=== PATIENT | female | born 1995 | race American Indian/Alaskan Native ===

== ENCOUNTER 2019-03-01 10:42 | Emergency (ER) | payer BC ==
[2019-03-01 10:48] VITALS: BP 110/62
[2019-03-01] MEDS ORDERED: NORCO 10/325 PO ONE (13:28)
--- NOTE | 2019-03-01 13:34 | Emergency Department Report ---
Abscess Boil HPI - HPI Chief Complaint: Skin/Abscess/Foreign Body Stated Complaint: ABSCESS PAINFUL TO SIT DOWN Time Seen by Provider: 03/01/19 12:28 Duration: 2 Days History: Yes Pain, No Fever, No Purulent Drainage, No Numbness, No Foreign Body, No Previous History, No Insect Bite HPI: This is a 23-year-old female nontoxic, well nourished in appearance, no acute signs of distress presents to the ED with c/o of abscess left buttock area 2 days. Patient denies any pus or drainage. Patient denies any fever, chills, nausea, vomiting, chest pain, shortness the breath, headache, stiff neck, numbness or tingling. Patient denies any allergies to significant past medical history. Home Medications: Previous Rx's Medication Instructions Recorded Last Taken Type Acetaminophen/Codeine [Tylenol 1 tab PO Q6H PRN #12 tab 03/01/19 Unknown Rx /Codeine # 3 tab] Ciprofloxacin HCl [Ciprofloxacin 500 mg PO Q12HR #14 tab 03/01/19 Unknown Rx TAB] metroNIDAZOLE [Flagyl] 500 mg PO Q12HR #14 tab 03/01/19 Unknown Rx Allergies/Adverse Reactions: Allergies Allergy/AdvReac Type Severity Reaction Status Date / Time No Known Allergies Allergy Unverified 03/01/19 10:44 ED Review of Systems ROS: Stated complaint: ABSCESS PAINFUL TO SIT DOWN Other details as noted in HPI Constitutional: denies: chills, fever Eyes: denies: eye pain, eye discharge, vision change ENT: denies: ear pain, throat pain Respiratory: denies: cough, shortness of breath, wheezing Cardiovascular: denies: chest pain, palpitations Endocrine: no symptoms reported Gastrointestinal: denies: abdominal pain, nausea, diarrhea Genitourinary: denies: urgency, dysuria, discharge Musculoskeletal: denies: back pain, joint swelling, arthralgia Skin: denies: rash, lesions Neurological: denies: headache, weakness, paresthesias Psychiatric: denies: anxiety, depression Hematological/Lymphatic: denies: easy bleeding, easy bruising ED Past Medical Hx - Past Medical History Previous Medical History?: No - Surgical History Past Surgical History?: No - Social History Smoking Status: Never Smoker Substance Use Type: None - Medications Home Medications: Home Medications Medication Instructions Recorded Confirmed Last Taken Type Acetaminophen/Codeine [Tylenol 1 tab PO Q6H PRN #12 tab 03/01/19 Unknown Rx /Codeine # 3 tab] Ciprofloxacin HCl [Ciprofloxacin 500 mg PO Q12HR #14 tab 03/01/19 Unknown Rx TAB] metroNIDAZOLE [Flagyl] 500 mg PO Q12HR #14 tab 03/01/19 Unknown Rx ED Abscess Boil Physical Exam - Exam General: Vital signs noted. No distress. Alert and acting appropriately. Front/Back of Body, Lg (Color): 1 - 2 cm abscess with induration or fluctuance. Size: 2 cm Exam: Yes Tenderness, Yes Fluctuance, Yes Normal Neurologic Exam, Yes Normal Circulation, No Surrounding Cellulites/Erythema, No Lymphangitis, No Crepitation, No Heart Murmur I & D Note - I & D Note I & D Note: Under sterile field, I used Betadine to cleanse the area. I then used 2% lidocaine plain with 25-gauge 5/8 needle to inject area for anesthetic purposes. Total volume injected 3 mL. I then used an 11 blade to make a 1 cm incision. About 2 mL's of purulent drainage has been noted. I then used a hemostat to break the abscess formation. I then used sterile 0.9% normal saline flush to flush the wound with total volume of 40 mL used. I then put a 1/4 io doform packing to the incision. A sterile 4 x 4 with tape has been applied as dressing. Bleeding is under control. Patient tolerated the procedure well with no signs of distress noted. ED Course Vital Signs 03/01/19 10:47 Temperature 98.5 F Pulse Rate 104 H Respiratory 18 Rate Blood Pressure 110/62 O2 Sat by Pulse 99 Oximetry - Reevaluation(s) Reevaluation #1: 03/01/19 13:34 Patient is speaking in full sentences with no signs of distress noted. Critical care attestation.: If time is entered above; I have spent that time in minutes in the direct care of this critically ill patient, excluding procedure time. ED Medical Decision Making - Medical Decision Making This is a 23-year-old female that presents wit abscess. Patient is stable and was examined by me. This is incision and drainage and has been performed and patient tolerated well. A sterile dressing has been applied. Patient was educated on proper wound care. Patient is discharged with Cipro and Flagyl and Tylenol with codeine and was instructed not to operate any machinery while taking Tylenol with codeine due to drowsiness. Patient did receive a dose of clindamycin by mouth in the ED. Patient was instructed to return in 2 days for packing removal. Patient was instructed to refer to Follow-up with a primary care doctor in 3-5 days or if symptoms worsen and continue return to emergency room as soon as possible. At time of discharge, the patient does not seem toxic or ill in appearance. No acute signs of distress noted. Patient agrees to discharge treatment plan of care. No further questions noted by the patient. ED Disposition Clinical Impression: Abscess, Encounter for incision and drainage procedure Disposition: TO HOME OR SELFCARE Is pt being admited?: No Does the pt Need Aspirin: No Condition: Stable Instructions: Abscess Incision and Drainage (ED), Abscess (ED), Acetaminophen/Codeine (By mouth) Additional Instructions: Follow-up with a primary care doctor in 3-5 days or if symptoms worsen and cont inue return to emergency room as soon as possible. Return in 2 days for packing removal. Do not operate any machinery while taking Tylenol with codeine as this may cause drowsiness. Prescriptions: Ciprofloxacin HCl [Ciprofloxacin TAB] 500 mg PO Q12HR #14 tab metroNIDAZOLE [Flagyl] 500 mg PO Q12HR #14 tab Acetaminophen/Codeine [Tylenol /Codeine # 3 tab] 1 tab PO Q6H PRN #12 tab PRN Reason: Pain , Severe (7-10) Referrals: OFELIA TRAVIS MD [Primary Care Provider] - 3-5 Days PRIMARY CAREMD [Referring] - 3-5 Days ARSENIO ANTHONY MD [Staff Physician] - 3-5 Days [facility] [Outside] - 3-5 Days [facility] [Outside] - 3-5 Days Forms: Work/School Release Form(ED)
[2019-03-01] MEDS ORDERED: CLEOCIN PO ONE (14:30)
== END 2019-03-01 14:48 | disposition home or self-care (01) ==
LOC: ED 10:42
DX: L02.31 Cutaneous abscess of buttock (principal)

== ENCOUNTER 2019-03-03 11:40 | Emergency (ER) | payer BC ==
[2019-03-03 11:58] VITALS: BP 112/53
--- NOTE | 2019-03-03 12:00 | Emergency Department Report ---
Chief Complaint: Skin/Abscess/Foreign Body Stated Complaint: TISSUE REMOVAL/BUTTOCK Time Seen by Provider: 03/03/19 11:56 - HPI History of Present Illness: pt presents for abscess on the buttcheek had it on saturday here for recheck packing still in there states small amount of drainage today MSE screening note: Focused history and physical exam performed. ED Disposition for MSE Condition: Stable
--- NOTE | 2019-03-03 12:05 | Emergency Department Report ---
- General Chief complaint: Skin/Abscess/Foreign Body Stated complaint: TISSUE REMOVAL/BUTTOCK Time Seen by Provider: 03/03/19 11:56 Source: patient Mode of arrival: Ambulatory Limitations: No Limitations - History of Present Illness Initial comments: Pt is a 23 yo female who presents for abscess recheck on the left buttocks. The patient was seen in the ED on 03/01/19 and had a I&D performed and presents for packing removal. Pt states the packing is still in place. Pt states she has only noticed a small amount of drainage today. She states the drainage has improved. She denies any fever, N/V, or any other sx. She is currently taking cipro/flagyl and states she has been taking it as prescribed. - Related Data Previous Rx's Medication Instructions Recorded Last Taken Type Acetaminophen/Codeine [Tylenol 1 tab PO Q6H PRN #12 tab 03/01/19 Unknown Rx /Codeine # 3 tab] Ciprofloxacin HCl [Ciprofloxacin 500 mg PO Q12HR #14 tab 03/01/19 Unknown Rx TAB] metroNIDAZOLE [Flagyl] 500 mg PO Q12HR #14 tab 03/01/19 Unknown Rx Allergies Allergy/AdvReac Type Severity Reaction Status Date / Time No Known Allergies Allergy Verified 03/03/19 11:58 Abscess Boil HPI - HPI Chief Complaint: Skin/Abscess/Foreign Body Stated Complaint: TISSUE REMOVAL/BUTTOCK Time Seen by Provider: 03/03/19 11:56 Home Medications: Previous Rx's Medication Instructions Recorded Last Taken Type Acetaminophen/Codeine [Tylenol 1 tab PO Q6H PRN #12 tab 03/01/19 Unknown Rx /Codeine # 3 tab] Ciprofloxacin HCl [Ciprofloxacin 500 mg PO Q12HR #14 tab 03/01/19 Unknown Rx TAB] metroNIDAZOLE [Flagyl] 500 mg PO Q12HR #14 tab 03/01/19 Unknown Rx Allergies/Adverse Reactions: Allergies Allergy/AdvReac Type Severity Reaction Status Date / Time No Known Allergies Allergy Verified 03/03/19 11:58 ED Review of Systems ROS: Stated complaint: TISSUE REMOVAL/BUTTOCK Other details as noted in HPI Comment: All other systems reviewed and negative ED Past Medical Hx - Past Medical History Previous Medical History?: No - Surgical History Past Surgical History?: Yes Additional Surgical History: bartholin cyst - Social History Smoking Status: Never Smoker Substance Use Type: None - Medications Home Medications: Home Medications Medication Instructions Recorded Confirmed Last Taken Type Acetaminophen/Codeine [Tylenol 1 tab PO Q6H PRN #12 tab 03/01/19 Unknown Rx /Codeine # 3 tab] Ciprofloxacin HCl [Ciprofloxacin 500 mg PO Q12HR #14 tab 03/01/19 Unknown Rx TAB] metroNIDAZOLE [Flagyl] 500 mg PO Q12HR #14 tab 03/01/19 Unknown Rx ED Physical Exam - General Limitations: No Limitations General appearance: alert, in no apparent distress - Head Head exam: Present: atraumatic, normocephalic - Eye Eye exam: Present: normal appearance - ENT ENT exam: Present: mucous membranes moist - Neurological Exam Neurological exam: Present: alert, oriented X3 - Psychiatric Psychiatric exam: Present: normal affect, normal mood - Skin Skin exam: Present: warm, dry, other (incision to the left gluteus brandi lateral to the gluteal cleft, no active drainage, no drainage able to be manually expressed, packing removed, no surrounding erythema, no surrounding fluctuance) ED Course Vital Signs 03/03/19 11:56 Temperature 97.9 F Pulse Rate 69 Respiratory 16 Rate Blood Pressure 112/53 [Right] O2 Sat by Pulse 100 Oximetry ED Medical Decision Making - Medical Decision Making Pt is a 23 yo female who presents for abscess recheck on the left buttocks. The patient was seen in the ED on 03/01/19 and had a I&D performed and presents for packing removal. Pt states the packing is still in place. Pt states she has only noticed a small amount of drainage today. She states the drainage has improved. She denies any fever, N/V, or any other sx. She is currently taking cipro/flagyl and states she has been taking it as prescribed. Packing removed while in the ED. Small amount of drainage present on packing. No active drainage, no drainage able to be manually expressed, no fluctuance, no surrounding celullitis. Advised pt to continue to take her abx. Discussed with pt that on her paperwork would be a general surgeon to follow up with and a primary care doctor and to see them in the next 2-3 days. Advised pt to continue placing clean gauze. and discussed to keep area clean and dry. Discussed may wash with soap and water but dry immediately. Advised pt no pool, hot tub, or bath tub. pt left the emergency room prior to receiving discharge paperwork. Critical care attestation.: If time is entered above; I have spent that time in minutes in the direct care of this critically ill patient, excluding procedure time. ED Disposition Clinical Impression: Abscess re-check Disposition: TO HOME OR SELFCARE Is pt being admited?: No Does the pt Need Aspirin: No Condition: Stable Instructions: Abscess Incision and Drainage (ED) Additional Instructions: Please continue taking your antibiotics. Please follow up with a general surgeon in the next 2-3 days. Please see a primary care doctor in the next 2-3 days. Please continue to keep area clean and dry. Continue using clean dressing. Return to the emergency room for any new or worsening symptoms. Referrals: ARMAND CARREON DO [Staff Physician] - 2-3 Days OFELIA TRAVIS MD [Staff Physician] - 2-3 Days [facility] [Provider Group] - 2-3 Days Time of Disposition: 12:03 Print Language: TRISTANIAN
== END 2019-03-03 12:00 | disposition home or self-care (01) ==
LOC: ED 11:40
DX: L02.31 Cutaneous abscess of buttock (principal)
CPT/HCPCS: 99281